=== PATIENT | male | born 1985 | race Hispanic/Latino ===

== ENCOUNTER 2019-01-19 13:21 | Emergency (ER) | payer OTHER ==
--- NOTE | 2019-01-19 14:02 | CT ---
CT BRAIN WITHOUT CONTRAST: HISTORY: Injury, headache FINDINGS: No evidence of acute infarct, hemorrhage, midline shift or abnormal extra-axial fluid collections is seen. The ventricular size is appropriate and the basilar cisterns are patent. The bony calvarium is intact. There are fractures of the nasal bones. IMPRESSION: No CT evidence of acute intracranial process.
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
[2019-01-19] MEDS ORDERED: Acetaminophen 500 MG TAB ONE (15:02)
[2019-01-19] MEDS ORDERED: Ketorolac Tromethamine 60 MG/2 ML VIAL ONE (15:02)
== END 2019-01-19 15:08 | disposition home or self-care (01) ==
LOC: NAV ERS 13:21
DX: S02.2XXA Fracture of nasal bones, initial encounter for closed fracture (principal); F17.210 Nicotine dependence, cigarettes, uncomplicated; Y04.0XXA Assault by unarmed brawl or fight, initial encounter
CPT/HCPCS: 70450; 70486; J1885